=== PATIENT | female | born 1955 | race Caucasian/White ===

== ENCOUNTER 2018-05-10 17:55 | Emergency (ER) | payer MEDICARE, OTHER ==
[2018-05-10] MEDS ORDERED: SODIUM CHLORIDE 0.9% 1,000 ML IV STA ×2 (18:32)
[2018-05-10] MEDS ORDERED: ASPIRIN 81 MG PO STA (18:32)
--- NOTE | 2018-05-10 18:34 | ED ---
Chest Pain HPI - General Chief Complaint: Chest Pain Stated Complaint: CHEST PAIN X 3 DAYS Time Seen by Provider: 05/10/18 18:20 Source: patient, RN notes reviewed, old records reviewed Mode of arrival: ambulatory Limitations: no limitations - History of Present Illness Initial Comments: Patient is a 63-year-old female presenting to emergency department today with chief complaint of intermittent chest pain for the past 3 days. Patient reports that the symptoms started when she was swimming in her friend's pool. She is a frequent swimmer and exercises regularly. Patient states she had episodes of swelling on the past 2 days. She states also will she was in her barn today moving hay she developed left-sided chest pain. She states been persistent since that time but has lessened. She complains of a dull ache currently. She denies any associated shortness of breath. She did complain of some tingling in her left arm. She does have a history of a "leaky valve". Patient states that she has had no fevers or chills. No coughing. She is an occasional marijuana smoker. She denies any significant family history of heart disease. - Related Data Home Medications Medication Instructions Recorded Confirmed ALPRAZolam [Xanax] 0.5 mg PO TID 05/10/18 05/10/18 Albuterol Inhaler [Ventolin Hfa 2 puff INHALATION RT-QID 05/10/18 05/10/18 Inhaler] Cetirizine HCl [Zyrtec] 10 mg PO DAILY 05/10/18 05/10/18 HYDROcodone/APAP 10-325MG [[place] 1 tab PO BID 05/10/18 05/10/18 10-325] Triamcinolone Acetonide [Nasacort] 1 spray EA NOSTRIL BID 05/10/18 05/10/18 Allergies Allergy/AdvReac Type Severity Reaction Status Date / Time meperidine [From Demerol] Allergy Nausea & Verified 05/10/18 18:49 Vomiting Penicillins Allergy Rash/Hives Verified 05/10/18 18:49 Review of Systems ROS Statement: Those systems with pertinent positive or pertinent negative responses have been documented in the HPI. ROS Other: All systems not noted in ROS Statement are negative. EKG Findings - EKG Comments: EKG Findings:: EKG performed at 1843 shows sinus bradycardia cut her otherwise normal EKG. Ventricular rate 55 bpm. Intervals 140 ms. QRS duration 88 ms. QT QTc is 96/378 ms. 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 Patient appears in no acute distress. Limitations: no limitations General appearance: alert, in no apparent distress Head exam: Present: atraumatic, normocephalic, normal inspection Eye exam: Present: normal appearance, PERRL, EOMI. Absent: scleral icterus, conjunctival injection, periorbital swelling ENT exam: Present: normal exam, mucous membranes moist Neck exam: Present: normal inspection. Absent: tenderness, meningismus, lymphadenopathy Respiratory exam: Present: normal lung sounds bilaterally. Absent: respiratory distress, wheezes, rales, rhonchi, stridor Cardiovascular Exam: Present: regular rate, normal rhythm, normal heart sounds. Absent: systolic murmur, diastolic murmur, rubs, gallop, clicks GI/Abdominal exam: Present: soft, normal bowel sounds. Absent: distended, tenderness, guarding, rebound, rigid Extremities exam: Present: normal inspection, full ROM, normal capillary refill. Absent: tenderness, pedal edema, joint swelling, calf tenderness Back exam: Present: normal inspection Neurological exam: Present: alert, oriented X3, CN II-XII intact Psychiatric exam: Present: normal affect, normal mood Skin exam: Present: warm, dry, intact, normal color. Absent: rash Course Vital Signs 05/10/18 05/10/18 18:06 19:00 Temperature 97.5 F L Pulse Rate 85 61 Respiratory 18 20 Rate Blood Pressure 153/94 139/81 O2 Sat by Pulse 100 100 Oximetry Chest Pain MDM - MDM 63-year-old female presents emergency Department with 3 days of intermittent chest pain. She reports is worse with exertion. At this time patient's EKG shows no significant changes. Her troponin was normal. Due to risk factor of age and the description the patient's pain being worse on exertion I discussed I would like to admit her. Patient has no family history of heart disease. She does report a history of "Leaky valve". She recently moved.. She reports that she has to take care of her sick horrse, and her dog are kenneled.. She has no family that would be able to take care of them for her at this time. I did discuss that I would like to admit the Patient and Patient states that she cannot be admitted at this time. She will be leaving AGAINST MEDICAL ADVICE. I did discuss that she should have very close follow-up with her primary care physician and extractor filler. Discussed she has any severe further chest pains that she should return to emergency department at once. Patient agrees to treatment plan will comply.Chest x-rays negative for any active cardiopulmonary disease. Normal heart. Disposition Clinical Impression: Chest pain Disposition: Left Against Medical Advice Condition: Stable Instructions: Chest Pain (ED) Additional Instructions: Patient advised to follow-up with PCP and cardiology. Patient should call 911 if there is any further episodes of chest pain. Is patient prescribed a controlled substance at d/c from ED?: No Referrals: Preeti Butler MD [Primary Care Provider] - 1-2 days Buddy Randhawa MD [STAFF PHYSICIAN] - 1-2 days Time of Disposition: 20:30
[2018-05-10 19:14] LABS: Basophils % (A) 1 %; Eosinophils # (A) 0.1 k/uL (0-0.7); Eosinophils % (A) 1 %; HCT 43.1 % (34.0-46.0); HGB 14.1 gm/dL (11.4-16.0); Lymphocytes % (A) 33 %; MCHC 32.8 g/dL (31.0-37.0); MCV 94.4 fL (80.0-100.0); Mean Platelet Volume 6.2; Monocytes # (A) 0.3 k/uL (0-1.0); Monocytes % (A) 5 %; Neutrophils # (A) 3.6 k/uL (1.3-7.7); Neutrophils % (A) 58 %; Platelet Count 276 k/uL (150-450); RBC 4.56 m/uL (3.80-5.40); RDW 12.4 % (11.5-15.5); WBC 6.2 k/uL (3.8-10.6)
[2018-05-10 19:23] LABS: INR 1.1 (<1.2); Partial Thromboplastin Time 25.1 sec (22.0-30.0); Prothrombin Time 10.4 sec (9.0-12.0)
[2018-05-10 19:24] LABS: ALT 43 U/L (9-52); AST 39 U/L (14-36); Albumin 4.4 g/dL (3.5-5.0); Alkaline Phosphatase 71 U/L (38-126); Anion Gap 9 mmol/L; Blood Urea Nitrogen 17 mg/dL (7-17); Calcium 9.8 mg/dL (8.4-10.2); Carbon Dioxide 24 mmol/L (22-30); Chloride 105 mmol/L (98-107); Glucose 89 mg/dL (74-99); Magnesium 1.9 mg/dL (1.6-2.3); Sodium 138 mmol/L (137-145); Total Bilirubin 0.7 mg/dL (0.2-1.3); Total Protein 7.4 g/dL (6.3-8.2)
[2018-05-10 19:26] LABS: Creatine Kinase 308 U/L (30-135)
--- NOTE | 2018-05-10 19:36 | XR ---
EXAMINATION TYPE: XR chest 2V DATE OF EXAM: 05/10/2018 COMPARISON: NONE HISTORY: Chest pain TECHNIQUE: Frontal and lateral views of the chest are obtained. FINDINGS: There is no heart failure nor confluent pneumonic infiltrate. Costophrenic angles are zoe r. Bony thorax is intact. There is no pleural effusion. IMPRESSION: No active cardiopulmonary disease. Normal heart.
[2018-05-10 19:39] LABS: Creatine Kinase MB 6.9 ng/mL (0.0-2.4); Troponin I <0.012 ng/mL (0.000-0.034)
[2018-05-10 19:57] VITALS: RESP 20
[2018-05-10 21:26] VITALS: BP 136/85; PULSE 81; TEMP 98.2
== END 2018-05-10 20:40 | disposition left against medical advice (07) ==
LOC: EC 17:55
DX: R07.9 Chest pain, unspecified (principal); R20.2 Paresthesia of skin; F12.90 Cannabis use, unspecified, uncomplicated; F17.200 Nicotine dependence, unspecified, uncomplicated; Z88.0 Allergy status to penicillin; Z88.5 Allergy status to narcotic agent; Z79.51 Long term (current) use of inhaled steroids; Z79.891 Long term (current) use of opiate analgesic; Z79.899 Other long term (current) drug therapy; Z96.652 Presence of left artificial knee joint; Z86.79 Personal history of other diseases of the circulatory system; Z98.890 Other specified postprocedural states
CPT/HCPCS: 36415; 71046; 80053; 82550; 82553; 83735; 84484; 85025; 85610; 85730; 93005; 96360; 99285

== ENCOUNTER 2018-08-04 16:04 | Inpatient (IN) | payer MEDICARE ==
[2018-08-04] MEDS ORDERED: HYDROmorphone 1 MG/ML 1 ML SYRINGE IM STA (16:39)
[2018-08-04] MEDS ORDERED: KETOROLAC 60 MG/2 ML VIAL IM STA (16:39)
--- NOTE | 2018-08-04 16:44 | ED ---
General Adult HPI <Precious Mesa - Last Filed: 08/04/18 18:25> - General Source: patient, RN notes reviewed Mode of arrival: ambulatory Limitations: no limitations <Sukhjinder Gant - Last Filed: 08/04/18 19:30> - General Chief complaint: Extremity Injury, Upper Stated complaint: Arm Injury Time Seen by Provider: 08/04/18 16:15 - History of Present Illness Initial comments: This is a 63-year-old female who comes in complaining that she was kicked by a horse in the right forearm. Patient denies any pain to the hand or wrist patient denies any pain to the elbow. Patient states she was no other injury. Patient states he was on accident by the horse and did not aggression. Patient denies any head or neck injury patient denies any chest or back injury patient denies any other injury at any other place 6 except for the right forearm. (Sukhjinder Gant) - Related Data Home Medications Medication Instructions Recorded Confirmed ALPRAZolam [Xanax] 0.5 mg PO TID PRN 05/10/18 08/04/18 HYDROcodone/APAP 10-325MG [[place] 1 tab PO QID PRN 05/10/18 08/04/18 10-325] Ascorbic Acid [Vitamin C] 500 mg PO DAILY 08/04/18 08/04/18 Glucosam/Demetris-Msm1/C/Case/Bosw 1 tab PO DAILY 08/04/18 08/04/18 [Glucosamine-Chondroitin Tablet] Multivitamin,Therapeutic [Thera] 1 tab PO DAILY 08/04/18 08/04/18 Tumeric (Unknown Dose) 1 tab PO DAILY 08/04/18 08/04/18 Vitamin C/Biotin [Hair, Skin and 1 tab PO DAILY 08/04/18 08/04/18 Nails] Allergies Allergy/AdvReac Type Severity Reaction Status Date / Time meperidine [From Demerol] Allergy Nausea & Verified 08/04/18 16:41 Vomiting Penicillins Allergy Rash/Hives Verified 08/04/18 16:41 Review of Systems ROS Other: All systems not noted in ROS Statement are negative. <Precious Mesa - Last Filed: 08/04/18 18:25> ROS Other: All systems not noted in ROS Statement are negative. <Sukhjinder Gant - Last Filed: 08/04/18 19:30> ROS Statement: Those systems with pertinent positive or pertinent negative responses have been documented in the HPI. Past Medical History Past Medical History: Asthma, Hyperlipidemia Additional Past Medical History / Comment(s): Heart murmur. 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 She has good pulses and good cap refill at this time and good sensation at this time (Sukhjinder Gant) Vital Signs 08/04/18 08/04/18 16:16 18:50 Temperature 97.9 F Pulse Rate 71 65 Respiratory 18 18 Rate Blood Pressure 179/93 157/106 O2 Sat by Pulse 99 98 Oximetry Procedures - Orthopedic Splinting/Casting Injury #1 Side: right Upper Extremity Injury Location: short arm, wrist Upper Extremity Immobilizer: sugar tong splint, Parminder wrap <Precious Mesa - Last Filed: 08/04/18 18:25> <Sukhjinder Gant - Last Filed: 08/04/18 19:30> - Orthopedic Splinting/Casting Injury #1 Additional Comments: Neurovascular status intact after splint application. Skin is pink, warm, dry. Cap refills less than 3 seconds. Radial pulses 2+ and equal bilaterally. ( Precious Mesa) Medical Decision Making <Precious Mesa - Last Filed: 08/04/18 18:25> <Sukhjinder Gant - Last Filed: 08/04/18 19:30> - Medical Decision Making Patient's x-ray of forearm shows a displaced fracture of the mid ulna. I spoke with neck the physician engineer third assistant for Dr. Concepcion he wanted the patient admitted to do surgery on Tuesday. He placed a splint. EKG shows a normal sinus rhythm at 69 bpm WA interval 146 QRS is 90 QT interval 370 QTC is 45 per patient's EKG shows no ST segment elevation or depression or T wave abnormalities are noted. (Sukhjinder Gant) Disposition <Precious Mesa - Last Filed: 08/04/18 18:25> Time of Disposition: 19:10 <Sukhjinder Gant - Last Filed: 08/04/18 19:30> Clinical Impression: Ulnar fracture Disposition: ADMITTED IP TO THIS HOSP Referrals: Preeti Butler MD [Primary Care Provider] - 1-2 days
[2018-08-04] MEDS ORDERED: ONDANSETRON ODT 4 MG TAB PO STA (17:00)
--- NOTE | 2018-08-04 17:33 | XR ---
Right forearm 3 views. History pain. Kicked by horse. Comparison none. FINDINGS: There is a nondisplaced transverse fracture of the olecranon process of the ulna. There is nondisplac ed oblique fracture between middle and distal thirds of the ulna. There is no dislocation. 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 There is some spurring at the radiocarpa l joint. There is intact radius. IMPRESSION: Comminuted fracture of the ulna. No significant displacement.
[2018-08-04] MEDS ORDERED: SODIUM CHLORIDE 0.9% 1,000 ML IV ONE (19:11)
[2018-08-04 19:27] LABS: Basophils % (A) 0 %; Eosinophils # (A) 0.1 k/uL (0-0.7); Eosinophils % (A) 1 %; HCT 42.5 % (34.0-46.0); HGB 14.2 gm/dL (11.4-16.0); Lymphocytes # (A) 1.6 k/uL (1.0-4.8); Lymphocytes % (A) 17 %; MCH 31.3 pg (25.0-35.0); MCHC 33.3 g/dL (31.0-37.0); MCV 93.9 fL (80.0-100.0); Mean Platelet Volume 6.3; Monocytes # (A) 0.5 k/uL (0-1.0); Monocytes % (A) 6 %; Neutrophils # (A) 7.2 k/uL (1.3-7.7); Neutrophils % (A) 75 %; Platelet Count 278 k/uL (150-450); RBC 4.53 m/uL (3.80-5.40); RDW 12.5 % (11.5-15.5); WBC 9.6 k/uL (3.8-10.6)
--- NOTE | 2018-08-04 19:36 | XR ---
EXAMINATION TYPE: XR chest 2V DATE OF EXAM: 08/04/2018 COMPARISON: 05/10/2018 HISTORY: Chest pain TECHNIQUE: Frontal and lateral views of the chest are obtained. FINDINGS: Heart and mediastinum are normal. Lungs are clear. Diaphragm is normal. Bony thorax is int act. There is mild thoracolumbar levoscoliosis. IMPRESSION: No active cardiopulmonary disease. No change. Left shoulder surgery noted.
[2018-08-04 19:41] LABS: INR 0.9 (<1.2); Partial Thromboplastin Time 23.7 sec (22.0-30.0); Prothrombin Time 9.8 sec (9.0-12.0)
[2018-08-04 19:55] LABS: ALT 50 U/L (9-52); AST 42 U/L (14-36); Albumin 4.6 g/dL (3.5-5.0); Alkaline Phosphatase 77 U/L (38-126); Anion Gap 10 mmol/L; Blood Urea Nitrogen 17 mg/dL (7-17); Calcium 9.6 mg/dL (8.4-10.2); Carbon Dioxide 23 mmol/L (22-30); Chloride 106 mmol/L (98-107); Glucose 88 mg/dL (74-99); Potassium 4.3 mmol/L (3.5-5.1); Sodium 139 mmol/L (137-145); Total Bilirubin 0.7 mg/dL (0.2-1.3); Total Protein 7.6 g/dL (6.3-8.2)
[2018-08-04] MEDS ORDERED: HYDROmorphone 1 MG/ML 1 ML SYRINGE IVP STA (19:56)
[2018-08-04 22:38] VITALS: BMI 20.9
[2018-08-04] MEDS ORDERED: ALPRAZolam 0.5 MG TAB PO PRN (22:58)
[2018-08-05] MEDS: HYDROmorphone 1 MG/ML 1 ML SYRINGE IVP PRN ×3 (02:12→15:36)
[2018-08-05] MEDS: LORATADINE 10 MG TAB PO SCH (09:04)
[2018-08-05] MEDS ORDERED: HYDROcodone/APAP 10-325MG 1 EACH TAB PO PRN (11:43)
--- NOTE | 2018-08-05 11:53 | P.CONS ---
History of Present Illness - Reason for Consult Consult date: 08/05/18 Requesting physician: Frank Moura - History of Present Illness This is a 63-year-old female patient of Dr. Butler patient presented to the hospital after obtaining injury from being kicked by her horse. Patient was found to have an ulnar fracture. X-ray completed showing commuted fracture of the ulna. No significant displacement. Chest x-ray completed showing no active cardiopulmonary disease. No change. Left shoulder surgery noted. EKG completed showing sinus rhythm with sinus arrhythmia. Normal EKG. Patient history of asthma. Patient also reports that over the past few months she has had feeling of throat. Patient reported that he had palpitations in her primary care doctor [facility], patient reports she had 2 -D echo and stress test recently completed. Patient reports he is to follow-up next few days for her results. Patient was also evaluated by ENT. ENT ordered TSH and thyroid ultrasound. Patient has not had those tests completed. Upon examination thyroid does feel irregular and enlarged. Will order thyroid ultrasound and TSH levels. Dr. Xie has been consulted for ENT. Cardiology services also consulted for 2-D echo and stress test results along with cardiology clearance prior to surgery. At this time patient denies any chest pain or shortness of breath. Patient denies nausea vomiting or diarrhea. Patient denies any urinary burning or frequency. Planning to undergo surgery tomorrow with Dr. moura Patient denies any significant cardiac history. Patient denies history of diabetes mellitus. Patient denies history of COPD. Patient does reports she has been having intermittent palpitations and when she was followed [facility]. Patient to be evaluated by cardiology prior to surgery and cleared for surgery Review of Systems please refer to HPI otherwise unremarkable Past Medical History Past Medical History: Asthma, Hyperlipidemia Additional Past Medical History / Comment(s): Heart murmur. 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 broken pelvis Past Psychological History: No Psychological Hx Reported Smoking Status: Never smoker Past Alcohol Use History: Occasional Past Drug Use History: Marijuana Additional Drug Use History / Comment(s): two days ago - Past Family History Mother Additional Family Medical History / Comment(s): diverticulitis, of blood clot, arthritis Father Additional Family Medical History / Comment(s): heart failure ITP Medications and Allergies Home Medications Medication Instructions Recorded Confirmed Type ALPRAZolam [Xanax] 0.5 mg PO TID PRN 05/10/18 08/04/18 History HYDROcodone/APAP 10-325MG [[place] 1 tab PO QID PRN 05/10/18 08/04/18 History 10-325] Ascorbic Acid [Vitamin C] 500 mg PO DAILY 08/04/18 08/04/18 History Cetirizine HCl [Zyrtec] 5 mg PO DAILY 08/04/18 History Glucosam/Demetris-Msm1/C/Case/Bosw 1 tab PO DAILY 08/04/18 08/04/18 History [Glucosamine-Chondroitin Tablet] Multivitamin,Therapeutic [Thera] 1 tab PO DAILY 08/04/18 08/04/18 History Tumeric (Unknown Dose) 1 tab PO DAILY 08/04/18 08/04/18 History Vitamin C/Biotin [Hair, Skin and 1 tab PO DAILY 08/04/18 08/04/18 History Nails] Allergies Allergy/AdvReac Type Severity Reaction Status Date / Time meperidine [From Demerol] Allergy Nausea & Verified 08/04/18 16:41 Vomiting Penicillins Allergy Rash/Hives Verified 08/04/18 16:41 Physical Exam Vitals: Vital Signs Temp Pulse Pulse Resp BP BP Pulse Ox 08/05/18 06:12 98.1 F 67 18 118/70 97 08/04/18 22:54 98.3 F 73 18 138/88 97 08/04/18 20:50 98.2 F 88 20 168/93 96 08/04/18 19:50 88 16 160/100 100 08/04/18 18:50 65 18 157/106 98 08/04/18 16:16 97.9 F 71 18 179/93 99 Intake and Output 08/04/18 08/05/18 08/05/18 22:59 06:59 14:59 Other: # Voids 2 Weight 58.967 kg Head normocephalic Neck supple. Thyroid enlarged and irregular Lungs clear to auscultation bilaterally no wheezing or crackles Heart regular rate and rhythm S1-S2, no rub or gallop Abdomen is soft nontender nondistended positive bowel sounds no hepatosplenomegaly Extremities no edema. Right extremity in cast Neuro alert and orientated to 3 Results CBC & Chem 7: 08/04/18 18:57 08/04/18 18:57 Labs: Abnormal Lab Results - Last 24 Hours (Table) 08/04/18 Range/Units 18:57 AST 42 H (14-36) U/L Assessment and Plan Assessment: 1. Right ulnar fracture. Patient sustained from horse injury. Patient planning to undergo surgicall intervention tomorrow with Dr. moura. 2. History of Asthma. No exacerbation at this time 3. Difficulty swallowing with thyroid irregularity. Patient was evaluated by ENT. Diarrhea ultrasound and TSH has been ordered Dr. Snyder has been consulted 4. History of palpitations. Patient reports that she was seen [facility]. 2-D echo and stress tests recently completed. Cardiology services consulted for test results and cardiac clearance Patient be cleared by cardiology services prior to surgery. Patient also to be evaluated by ENT. Thyroid ultrasound and TSH level has been ordered Chest x-ray showing no active cardiopulmonary disease. No change. Left shoulder surgery noted. EKG completed showing normal sinus rhythm with sinus arrhythmia, normal EKG. thank you for this consultation we will continue to follow patient closely throughout stay
--- NOTE | 2018-08-05 12:34 | US ---
EXAMINATION TYPE: US thyroid st tissue head/neck DATE OF EXAM: 08/05/2018 COMPARISON: NONE CLINICAL HISTORY: irregular thyroid. GLAND SIZE: Right Lobe: 4.2 x 1.1 x 1.0 cm Overall Parenchyma: homogenous Left Lobe: 4.0 x 1.0 x 1.0 cm Overall Parenchyma: homogeneous Isthmus Thickness: 0.2 cm NODULES RIGHT: # of nodules measured on right: 0 LEFT: # of nodules measured on left: 1 1. 0.4 X 0.3 x 0.3 cm echogenic solid nodule at the lower pole with well-defined margins. This nodu le is wider than tall and shows intranodular vascularity. No prior Bilateral neck scanned, no evidence of lymphadenopathy. IMPRESSION: Nonspecific subcentimeter nodule left thyroid lobe.
--- NOTE | 2018-08-05 12:38 | P.HPOR ---
History of Present Illness H&P Date: 08/05/18 Chief Complaint: Right ulna and olecranon fracture Patient is 63-year-old female who presented to [facility] on 08/04/2018 after sustaining an injury at her home. Patient was in her barn working with her horse, the horse became agitated and kicked her in the right upper extremity. Patient had immediate pain and presented [facility]. Upon arrival, imaging test were done. Images demonstrated a displaced right distal ulnar shaft fracture along with a nondisplaced right olecranon fracture. I was contacted by the emergency room staff regarding this patient, case was discussed. Patient was admitted under orthopedic care, plan for likely surgery. Patient was evaluated at bedside, she is resting comfortably, sugar tong splint and arm sling are intact. She notes no sciatic and discomfort at this time. She has no other acute orthopedic complaints. She admits to having a previous fracture involving the right wrist along time ago the, there is deformity noted she states. She also admits previous right shoulder surgery. Patient mentioned a recent issues with heart palpitations and difficulty swallowing. She was scheduled for a thyroid ultrasound in the next week or so, internal medicine has ordered the test. Cardiology has also been consult, she admits to a recent stress test and echo. Internal medicine is asking for clearance his prior surgery. Review of Systems Constitutional: Reports as per HPI Past Medical History Past Medical History: Asthma, Hyperlipidemia Additional Past Medical History / Comment(s): Heart murmur. 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 broken pelvis Past Psychological History: No Psychological Hx Reported Smoking Status: Never smoker Past Alcohol Use History: Occasional Past Drug Use History: Marijuana Additional Drug Use History / Comment(s): two days ago - Past Family History Mother Additional Family Medical History / Comment(s): diverticulitis, of blood clot, arthritis Father Additional Family Medical History / Comment(s): heart failure ITP Medications and Allergies Home Medications Medication Instructions Recorded Confirmed Type ALPRAZolam [Xanax] 0.5 mg PO TID PRN 05/10/18 08/04/18 History HYDROcodone/APAP 10-325MG [[place] 1 tab PO QID PRN 05/10/18 08/04/18 History 10-325] Ascorbic Acid [Vitamin C] 500 mg PO DAILY 08/04/18 08/04/18 History Cetirizine HCl [Zyrtec] 5 mg PO DAILY 08/04/18 History Glucosam/Demetris-Msm1/C/Case/Bosw 1 tab PO DAILY 08/04/18 08/04/18 History [Glucosamine-Chondroitin Tablet] Multivitamin,Therapeutic [Thera] 1 tab PO DAILY 08/04/18 08/04/18 History Tumeric (Unknown Dose) 1 tab PO DAILY 08/04/18 08/04/18 History Vitamin C/Biotin [Hair, Skin and 1 tab PO DAILY 08/04/18 08/04/18 History Nails] Allergies Allergy/AdvReac Type Severity Reaction Status Date / Time meperidine [From Demerol] Allergy Nausea & Verified 08/04/18 16:41 Vomiting Penicillins Allergy Rash/Hives Verified 08/04/18 16:41 Physical Examination Right upper extremity: Sugar tong splint and sling are in good position and condition. Minimal swelling present in the fingers at this time. Sensation to light touch with proximal distal to the splint are intact. Cap refills less than 2 seconds. Results - Labs Labs: Abnormal Lab Results - Last 24 Hours (Table) 08/04/18 Range/Units 18:57 AST 42 H (14-36) U/L H & H 08/04/18 Range/Units 18:57 Hgb 14.2 (11.4-16.0) gm/dL Hct 42.5 (34.0-46.0) % Coagulation 08/04/18 Range/Units 18:57 INR 0.9 (<1.2) Result Diagrams: 08/04/18 18:57 08/04/18 18:57 - Diagnostic results Elbow x-ray: report reviewed, image reviewed Wrist/Hand x-ray: report reviewed, image reviewed Assessment and Plan Plan: Imaging: Multiple views of the right forearm to include elbow and wrist were obtained and reviewed. Images do demonstrate a displaced right distal ulna fracture. Images also demonstrated a nondisplaced right intra-articular olecranon fracture. Overall alignment of the elbow remains intact. X-rays also demonstrate severe arthritis involving the first CMC joint. Assessment: 1. Right upper extremity injury 2. Displaced right distal ulnar fracture 3. Nondisplaced right intra-articular olecranon fracture 4. Other medical comorbidities Plan: I was able to discuss the case, including with physical exam findings and imaging studies my attending Dr. Concepcion. I plan is proceed with surgical intervention. We like to proceed with an open reduction internal fixation of both the right distal ulna and right olecranon fracture. Our plan is to proceed with this on 08/06/2018. Risk and benefits of the procedure were discussed patient's bedside, this to include but not excluded to infection, blood loss, neurovascular injury, pain and stiffness, possibility of nonunion versus malunion, need for subsequent surgery. Patient is in good understanding would like to proceed with surgery. Await recommendations from cardiology Internal medicine recommendations appreciated Continue use of arm sling at this time, ice and elevate Obtaining consent Nothing by mouth after midnight on 08/05/2018 Plan for surgery on 08/06/2018 Time with Patient: Less than 30
[2018-08-05] MEDS ORDERED: ONDANSETRON 4 MG/2 ML VIAL IVP PRN (15:41)
[2018-08-05] MEDS ORDERED: ONDANSETRON 4 MG/2 ML VIAL IVP STA (15:41)
--- NOTE | 2018-08-05 16:05 | P.OP ---
Date of Procedure: 08/05/18 Preoperative Diagnosis: Globus pharyngeus Dysphasia Postoperative Diagnosis: same Procedure(s) Performed: Flexible Nasopharyngolaryngoscopy Anesthesia: VERENAA Surgeon: Jared Collazo Estimated Blood Loss (ml): 0 Pathology: none sent Condition: stable Disposition: no change Indications for Procedure: Patient has globus pharyngeus and dysphagia symptoms. The patient fractured her ulnar and is soon to undergo surgery. I've been asked to consult regarding her airway in light of her symptoms. Operative Findings: The nasopharynx, oropharynx and hypopharynx did not show any pathology. No evidence of any tumors or masses. Description of Procedure: An EF type GP nasopharyngoscope was inserted into the patient's left nares and followed the floor the nose into the nasopharynx then into the oropharynx and hypopharynx. The epiglottis vocal cords base of tongue lateral pharynx arytenoids etc. all appear unremarkable. There is no evidence of obstruction or throat pathology.
--- NOTE | 2018-08-05 16:20 | P.GSCN ---
History of Present Illness Consult date: 08/05/18 Reason for Consult: Globus pharyngeus Dysphasia Requesting physician: Frank Concepcion History of present illness: This is a 63-year-old white female who fractured her ulnar on her right side. She has a history of dysphagia and globus pharyngeus and I've been asked to consult to make sure we do not have a difficult airway when we intubate the patient tomorrow with her scheduled fracture surgery. She tells me that this problem has been going on for a long period time. She has seen my partner for evaluation in the past. She tells me that when she swallows food gets stuck in the throat she has a persistent sensation of a lump in her throat. He does not seem to be getting better or worse. She is worried because her brother of throat cancer recently. She denies any hemoptysis or weight loss. Review of Systems - Constitutional Denies anorexia, Denies lethargy - EENT Ears, nose, mouth and throat: Denies bleeding gums, Denies dental pain - Cardiovascular Denies claudication - Respiratory Denies cough - Gastrointestinal Denies abdominal pain - Genitourinary Genitourinary: Denies abnormal vaginal bleeding Menstruation: Denies amenorrhea on BC - Musculoskeletal Reports arm numbness/tingling, Reports fractures, Denies frequent falls - Integumentary Denies brittle nails - Neurological Denies balance difficulties - Psychiatric Denies change in appetite - Endocrine Denies deepening of the voice - Hematologic/Lymphatic Denies easy bleeding - Allergic/Immunologic Reports allergic rhinitis, Denies angioedema Past Medical History Past Medical History: Asthma, Hyperlipidemia Additional Past Medical History / Comment(s): Heart murmur. 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 broken pelvis Past Psychological History: No Psychological Hx Reported Smoking Status: Never smoker Past Alcohol Use History: Occasional Past Drug Use History: Marijuana Additional Drug Use History / Comment(s): two days ago - Past Family History Mother Additional Family Medical History / Comment(s): diverticulitis, of blood clot, arthritis Father Additional Family Medical History / Comment(s): heart failure ITP Medications and Allergies Home Medications Medication Instructions Recorded Confirmed Type ALPRAZolam [Xanax] 0.5 mg PO TID PRN 05/10/18 08/04/18 History HYDROcodone/APAP 10-325MG [[place] 1 tab PO QID PRN 05/10/18 08/04/18 History 10-325] Ascorbic Acid [Vitamin C] 500 mg PO DAILY 08/04/18 08/04/18 History Cetirizine HCl [Zyrtec] 5 mg PO DAILY 08/04/18 History Glucosam/Demetris-Msm1/C/Case/Bosw 1 tab PO DAILY 08/04/18 08/04/18 History [Glucosamine-Chondroitin Tablet] Multivitamin,Therapeutic [Thera] 1 tab PO DAILY 08/04/18 08/04/18 History Tumeric (Unknown Dose) 1 tab PO DAILY 08/04/18 08/04/18 History Vitamin C/Biotin [Hair, Skin and 1 tab PO DAILY 08/04/18 08/04/18 History Nails] Allergies Allergy/AdvReac Type Severity Reaction Status Date / Time meperidine [From Demerol] Allergy Nausea & Verified 08/04/18 16:41 Vomiting Penicillins Allergy Rash/Hives Verified 08/04/18 16:41 Surgical - Exam Osteopathic Statement: *. No significant issues noted on an osteopathic structural exam other than those noted in the History and Physical/Consult. Vital Signs Temp Pulse Resp BP Pulse Ox 97.9 F 71 18 179/93 99 08/04/18 16:16 08/04/18 16:16 08/04/18 16:16 08/04/18 16:16 08/04/18 16:16 - General well developed, well nourished, no distress, moderate distress, severe distress - Eyes Head is normocephalic the face is symmetric there's no abnormal movements is no tenderness to the sinuses are mastoids. There is no nodules or eruptions or parasites on scalp. Auricles are well-formed canals are clear. Nose is patent there is some inferior turbinate hypertrophy noted and evidence of ALLERGIES are seen. Mouth and throat demonstrate no pathology. Neck is unremarkable PERRL, normal ocular movement - ENT normal pinna, normal nares, normal mucosa - Neck no masses, no bruits - Respiratory normal expansion, clear to percussion - Musculoskeletal normal gait, normal posture - Psychiatric oriented to time, oriented to person, oriented to place, speech is normal Results - Labs 08/04/18 18:57 08/04/18 18:57 Abnormal Lab Results - Last 24 Hours (Table) 08/04/18 Range/Units 18:57 AST 42 H (14-36) U/L Diabetes panel 08/04/18 Range/Units 18:57 Sodium 139 (137-145) mmol/L Potassium 4.3 (3.5-5.1) mmol/L Chloride 106 (98-107) mmol/L Carbon Dioxide 23 (22-30) mmol/L BUN 17 (7-17) mg/dL Creatinine 0.60 (0.52-1.04) mg/dL Glucose 88 (74-99) mg/dL Calcium 9.6 (8.4-10.2) mg/dL AST 42 H (14-36) U/L ALT 50 (9-52) U/L Alkaline Phosphatase 77 (38-126) U/L Total Protein 7.6 (6.3-8.2) g/dL Albumin 4.6 (3.5-5.0) g/dL Thyroid panel 08/04/18 Range/Units 18:37 TSH 3.500 (0.465-4.680) mIU/L Calcium panel 08/04/18 Range/Units 18:57 Calcium 9.6 (8.4-10.2) mg/dL Albumin 4.6 (3.5-5.0) g/dL Pituitary panel 08/04/18 08/04/18 Range/Units 18:37 18:57 Sodium 139 (137-145) mmol/L Potassium 4.3 (3.5-5.1) mmol/L Chloride 106 (98-107) mmol/L Carbon Dioxide 23 (22-30) mmol/L BUN 17 (7-17) mg/dL Creatinine 0.60 (0.52-1.04) mg/dL Glucose 88 (74-99) mg/dL Calcium 9.6 (8.4-10.2) mg/dL TSH 3.500 (0.465-4.680) mIU/L Adrenal panel 08/04/18 Range/Units 18:57 Sodium 139 (137-145) mmol/L Potassium 4.3 (3.5-5.1) mmol/L Chloride 106 (98-107) mmol/L Carbon Dioxide 23 (22-30) mmol/L BUN 17 (7-17) mg/dL Creatinine 0.60 (0.52-1.04) mg/dL Glucose 88 (74-99) mg/dL Calcium 9.6 (8.4-10.2) mg/dL Total Bilirubin 0.7 (0.2-1.3) mg/dL AST 42 H (14-36) U/L ALT 50 (9-52) U/L Alkaline Phosphatase 77 (38-126) U/L Total Protein 7.6 (6.3-8.2) g/dL Albumin 4.6 (3.5-5.0) g/dL Assessment and Plan (1) Globus pharyngeus Current Visit: Yes Status: Acute Code(s): F45.8 - OTHER SOMATOFORM DISORDERS SNOMED Code(s): 06321985 (2) Dysphagia Current Visit: Yes Status: Acute Code(s): R13.10 - DYSPHAGIA, UNSPECIFIED SNOMED Code(s): 08094035 Time with Patient: Greater than 30
--- NOTE | 2018-08-05 18:04 | CT ---
EXAMINATION TYPE: CT soft tissue neck wo/w con DATE OF EXAM: 08/05/2018 5:17 PM COMPARISON: None HISTORY: Dysphagia, globus pharyngeus. CT DLP: 529.5 mGycm Automated exposure control for dose reduction was used. CONTRAST: CT scan of the neck is performed following without and with IV Contrast, patient injected with 100 mL of Isovue 300. Axial images are obtained, coronal and sagittal reformatted images are reviewed. FINDINGS: There is normal branching pattern of the great vessels on the aortic arch. Thyroid gland appears norm al. There is normal contrast opacification of the carotid arteries and jugular veins. There is bilate ral contrast opacification of the vertebral arteries. Submandibular salivary glands are symmetric. I see no cervical adenopathy. Parotid glands are symmetr ic. The prevertebral soft tissues are unremarkable. The epiglottis is normal. Subglottic trachea appears normal. There is no evidence of a pharyngeal mass. The tonsils and adenoids are within normal limits. There are spondylotic changes in the cervical spine. I see no cervical lymphadenopathy. There is no pathologic enhancement. IMPRESSION: Spondylotic changes in the lower cervical spine with disc space narrowing at C5-6 C6-7. No fracture. No evidence of pharyngeal mass. I do not see a cause for dysphagia.
[2018-08-05] MEDS: MORPHINE SULFATE 2 MG/ML SYRINGE IVP PRN (21:44)
[2018-08-06] MEDS: MORPHINE SULFATE 2 MG/ML SYRINGE IVP PRN ×2 (02:31→05:11)
--- NOTE | 2018-08-06 07:24 | FL ---
EXAMINATION: Cervical and Thoracic Esophagram DATE OF EXAM: 08/05/2018 CLINICAL INDICATION: 63-year-old female with globus pharyngeus, dysphagia, patient currently intubate d for orthopedic surgery. COMPARISON: Correlation CT and ultrasound 08/05/2018 Total Fluoroscopy Time: 1 minute 36 seconds. Coronal images: 24 FINDINGS: The swallowing mechanism is normal with transient penetration incidentally noted. Hypopharyngeal diane star is preserved. There is anterior endplate spondylosis in the lower cervical spine especially at C5-C6 and C6/C7 caus ing mild to moderate focal impressions onto the posterior wall of the hypopharynx and upper cervical esophagus. There is no obstruction. The patient points at or close to this level when instructed to point to the site of symptomatology. The thoracic portion has a normal course and caliber. The mucosa is normal and no persistent filling defect is encountered. There is no sizable hiatal hernia. The patient could not lay prone/VEGA for drinking of thin liquid. T his results in suboptimal assessment of esophageal motility. Also, unable to assess for gastroesophag eal reflux. IMPRESSION: 1. A couple likely incidental episodes of transient penetration. No aspiration seen during the study. 2. Anterior cervical spondylosis causes mild to moderate impressions on to the posterior wall of the hypopharynx and cervical esophagus. This contributes to some narrowing of the contrast column during swallows but does not cause any obstruction. 3. The patient is instructed to point to the level of globus/choking sensation. It may correspond to the same level. Clinically correlate. 4. Limited assessment of esophageal motility as the patient could not assume appropriate prone/VEGA po sitioning due to condition. The remainder of the study is unremarkable given this limitation.
[2018-08-06] MEDS ORDERED: ROPIVACAINE 5 MG/ML 30 ML VIAL ONE (08:00)
[2018-08-06] MEDS ORDERED: ONDANSETRON 4 MG/2 ML VIAL ONE (08:00)
[2018-08-06] MEDS ORDERED: DEXAMETHASONE SOD PHOS (MDV) 100 MG/10 ML VIAL ONE (08:00)
[2018-08-06] MEDS ORDERED: SUCCINYLCHOLINE CHLORIDE 100 MG/5 ML SYR IV ONE (08:00)
[2018-08-06] MEDS ORDERED: MIDAZOLAM 2 MG/2 ML VIAL ONE (08:00)
[2018-08-06] MEDS ORDERED: fentaNYL (PF) 50 MCG/ML 2 ML AMP ONE (08:00)
[2018-08-06] MEDS ORDERED: PHENYLEPHRINE-0.9% NACL SYG 1 MG/10 ML SYRINGE ONE (08:00)
[2018-08-06] MEDS ORDERED: LIDOCAINE 1% INJ 10MG/ML (20 ML MDV) ONE (08:00)
[2018-08-06] MEDS ORDERED: PROPOFOL 10 MG/ML 20 ML VIAL IV ONE (08:00)
[2018-08-06] MEDS ORDERED: ePHEDrine SULFATE/0.9% NACL/PF 50 MG/5 ML SYRINGE IV ONE (08:00)
[2018-08-06] MEDS ORDERED: LACTATED RINGERS 1,000 ML IV ONE (08:05)
[2018-08-06] MEDS ORDERED: SODIUM CHLORIDE 0.9% 50 ML with ceFAZolin 2,000 MG IV ONE ×2 (08:15)
[2018-08-06] MEDS ORDERED: BUPIVACAINE (PF) 0.25% 30 ML VIAL SQ ONE (08:29)
--- NOTE | 2018-08-06 09:00 | P.ONQ ---
Anesthesiology Proc Note - PNB - Peripheral Nerve Block Performed Right Supraclavicular Single Time Out Performed: Yes (0752) Procedure Start Time: 07:52 Procedure Stop Time: 07:58 Indication: Acute Post-Operative Pain, Dx/Pain Location (Right Elbow Pain), Requested by physician Sedation Type: Sedate with meaningful contact maintained Preparation: Sterile Prep Catheter: None Needle Types: On-Q Needle Size: 100mm (4") Needle Gauge: 21 Technique: Ultrasound Injectate: 0.5% Ropivacaine (see comment for volume) (20ml) Blood Aspirated: No Pain Paresthesia on Injection Noted: No Resistance on Injection: Normal Events: Uneventful and Well Tolerated
[2018-08-06] MEDS ORDERED: CLINDAMYCIN 600 MG in SODIUM CHLORIDE 0.9% 1,000 ML IRRIGATION ONE (09:03)
--- NOTE | 2018-08-06 09:31 | XR ---
EXAMINATION TYPE: XR elbow limited RT, XR wrist limited RT, FL guidance operating room DATE OF EXAM: 08/06/2018 COMPARISON: NONE HISTORY: 63-year-old female with elbow fracture, intraoperative fluoroscopy. FINDINGS: Percutaneous pinning with tension wire fixation along the olecranon. Some associated soft tissue swel ling. 2 views of the elbow. Additional medial plate and screw fixation of the distal ulnar shaft fracture. 2 views of the distal/ proximal wrist. FLUOROSCOPY Fluoroscopy time of 3 seconds was used during olecranon and distal ulnar shaft fixation. A total 4 i mage/s document/s the procedure. IMPRESSION: Intraoperative fluoroscopy as above.
[2018-08-06] MEDS ORDERED: HYDROmorphone 1 MG/ML 1 ML SYRINGE IM PRN (09:44)
[2018-08-06] MEDS ORDERED: MAGNESIUM HYDROXIDE 2,400 MG/10 ML CUP PO PRN (09:44)
--- NOTE | 2018-08-06 09:49 | P.OP ---
Date of Procedure: 08/06/18 Preoperative Diagnosis: 1. Right elbow olecranon fracture 2. Right distal ulnar shaft fracture Postoperative Diagnosis: Same Procedure(s) Performed: 1. Open reduction and internal fixation right elbow olecranon fracture 2. Open reduction and internal fixation right distal ulnar shaft fracture Implants: Synthes 6-hole plate with 6 appropriate length 3.5 mm cortical screws 2-0.62 K wires and 18-gauge cerclage wire Anesthesia: GETA, regional (Supraclavicular block) Surgeon: Frank Concepcion Viscosity Inspector #1: Maurice Mayer Estimated Blood Loss (ml): 15 Pathology: none sent Condition: stable Disposition: PACU Indications for Procedure: 63-year-old patient seen with a displaced right elbow olecranon fracture and displaced right distal ulnar shaft fracture. I recommended open reduction and internal fixation. Patient was agreeable and consent was obtained. Operative Findings: See description of procedure Description of Procedure: The patient was then taken to the operative suite and received preoperative IV antibiotics. The patient underwent a general anesthetic by the department of anesthesia. A well-padded tourniquet was placed along the proximal right upper extremity. The right upper extremity was prepped and draped in the normal sterile orthopedic fashion. The extremity elevated and tourniquet insufflated to 250. I made an incision along the area of the ulna shaft fracture sharply through skin. I carefully dissected down to the fracture site. There was a completely displaced fracture. Periosteal elevation was utilized to better define the fracture. The fracture was now reduced and held in position with bone reduction clamp. I chose a one third semitubular 6-hole Synthes plate and secured it. Appropriate drill holes were now made. Appropriate screws were inserted having good bite and purchase. The construct appears stable and we evaluated this under AP and lateral intraoperative imaging and noted adequate alignment both the fracture and the fixation. I now made an incision along the olecranon sharply through skin. We dissected down to the olecranon. There was a displaced olecranon fracture noted. Again periosteal elevation was utilized to better define the fracture. I now inserted 20.62 K wires into the proximal olecranon. We then drilled a hole through the proximal one third area and introduced our cerclage wire and a cerclage fashion reduced the fracture and secured. The K wires were clipped and bent and buried. Tension was performed and the tension wire was cut clipped and bent and buried in soft tissues well. The C-arm was brought to the operative field revealing adequate alignment of the fixation and good reduction of the fracture. Spot films were obtained intraoperatively. Both wounds were irrigated with antibiotic irrigant solution. Subcu soft tissues of both incision sites were approximated 2-0 Vicryl. The skin of both incisions were approximated with skin jerry. We applied sterile dressings. The tourniquet was released with immediate capillary refill noted. We now applied sterile web roll. The patient was placed into a posterior splint with the elbow at 90 in neutral rotation of the forearm. The patient was now awakened transferred to a bed and recovery stable condition. Chester FORD assisted with both procedures.
[2018-08-06] MEDS ORDERED: diphenhydrAMINE 50 MG/ML 1 ML VIAL IVP ONE (09:50)
[2018-08-06 11:07] VITALS: RESP 16
[2018-08-06] MEDS: PANTOPRAZOLE 40 MG TABLET PO SCH (11:11)
[2018-08-06] MEDS: LORATADINE 10 MG TAB PO SCH (11:11)
[2018-08-06 12:51] LABS: Basophils % (A) 0 %; Eosinophils % (A) 0 %; HCT 37.8 % (34.0-46.0); HGB 12.5 gm/dL (11.4-16.0); Lymphocytes # (A) 0.4 k/uL (1.0-4.8); Lymphocytes % (A) 7 %; MCH 31.6 pg (25.0-35.0); MCV 95.8 fL (80.0-100.0); Mean Platelet Volume 6.6; Monocytes # (A) 0.1 k/uL (0-1.0); Monocytes % (A) 2 %; Neutrophils # (A) 5.2 k/uL (1.3-7.7); Neutrophils % (A) 90 %; Platelet Count 233 k/uL (150-450); RBC 3.95 m/uL (3.80-5.40); RDW 12.7 % (11.5-15.5); WBC 5.8 k/uL (3.8-10.6)
[2018-08-06 13:01] LABS: ALT 36 U/L (9-52); AST 32 U/L (14-36); Albumin 3.8 g/dL (3.5-5.0); Alkaline Phosphatase 67 U/L (38-126); Anion Gap 5 mmol/L; Blood Urea Nitrogen 12 mg/dL (7-17); Calcium 9.2 mg/dL (8.4-10.2); Carbon Dioxide 27 mmol/L (22-30); Chloride 108 mmol/L (98-107); Glucose 124 mg/dL (74-99); Potassium 4.2 mmol/L (3.5-5.1); Sodium 140 mmol/L (137-145); Total Bilirubin 0.6 mg/dL (0.2-1.3); Total Protein 6.4 g/dL (6.3-8.2)
--- NOTE | 2018-08-06 14:07 | P.PN ---
Subjective Progress Note Date: 08/06/18 This is a 63-year-old female patient of Dr. Butler patient presented to the hospital after obtaining injury from being kicked by her horse. Patient was found to have an ulnar fracture. X-ray completed showing commuted fracture of the ulna. No significant displacement. Chest x-ray completed showing no active cardiopulmonary disease. No change. Left shoulder surgery noted. EKG completed showing sinus rhythm with sinus arrhythmia. Normal EKG. Patient history of asthma. Patient also reports that over the past few months she has had feeling of throat. Patient reported that he had palpitations in her primary care doctor sent [facility], patient reports she had 2 -D echo and stress test recently completed. Patient reports he is to follow-up next few days for her results. Patient was also evaluated by ENT. ENT ordered TSH and thyroid ultrasound. Patient has not had those tests completed. Upon examination thyroid does feel irregular and enlarged. Will order thyroid ultrasound and TSH levels. Dr. Xie has been consulted for ENT. Cardiology services also consulted for 2-D echo and stress test results along with cardiology clearance prior to surgery. At this time patient denies any chest pain or shortness of breath. Patient denies nausea vomiting or diarrhea. Patient denies any urinary burning or frequency. Planning to undergo surgery tomorrow with Dr. moura On 08/06/2018 patient was seen and examined on the medical floor she is alert and oriented 3 in no apparent distress. There is no fever or chills no headache or dizziness no chest pain no shortness of breath no cough no nausea or vomiting no abdominal pain no diarrhea and no urinary symptoms Objective - Vital Signs Vital signs: Vital Signs Temp 97.9 F 08/06/18 10:50 Pulse 82 08/06/18 10:50 Resp 16 08/06/18 10:50 BP 132/90 08/06/18 10:50 Pulse Ox 98 08/06/18 10:50 Intake & Output 08/05/18 08/06/18 08/06/18 18:59 06:59 18:59 Intake Total 1800 801 Output Total 15 Balance 1800 786 Intake: IV 801 Oral 1800 Output: Estimated Blood Loss 15 Other: Voiding Method Toilet # Voids 2 1 - Exam Head normocephalic Neck supple. Thyroid enlarged and irregular Lungs clear to auscultation bilaterally no wheezing or crackles Heart regular rate and rhythm S1-S2, no rub or gallop Abdomen is soft nontender nondistended positive bowel sounds no hepatosplenomegaly Extremities no edema. Right extremity in cast Neuro alert and orientated to 3 - Labs CBC & Chem 7: 08/06/18 11:28 08/06/18 11:28 Labs: Abnormal Lab Results - Last 24 Hours (Table) 08/06/18 08/06/18 Range/Units 11:28 11:28 Lymphocytes # 0.4 L (1.0-4.8) k/uL Chloride 108 H (98-107) mmol/L Glucose 124 H (74-99) mg/dL Assessment and Plan Plan: 1. Right ulnar fracture. Patient sustained from horse injury. Patient underwent surgery with Dr. moura today 2. History of Asthma. No exacerbation at this time 3. Difficulty swallowing with thyroid irregularity. Patient was evaluated by ENT. Diarrhea ultrasound and TSH has been ordered Dr. Snyder has been consulted 4. History of palpitations. Patient reports that she was seen by [facility]. 2-D echo and stress tests recently completed. Cardiology services consulted for test results and cardiac clearance Patient seen postoperatively she is stable no symptoms at this time will follow closely
[2018-08-06] MEDS ORDERED: ceFAZolin IN SWFI 2 GM/20 ML SYRINGE IVP ONE (16:00)
[2018-08-06] MEDS: HYDROcodone/APAP 10-325MG 1 EACH TAB PO PRN ×2 (16:40→21:31)
[2018-08-06] MEDS: DOCUSATE 100 MG CAP PO SCH (20:52)
--- NOTE | 2018-08-06 22:47 | P.CRDCN ---
History of Present Illness Consult date: 08/06/18 Consult reason: pre-op evaluation History of present illness: This patient was admitted with the ulnar fracture. Patient underwent the surgery without any complications. Patient has a history of asthma also has been having intermittent palpitations. She was evaluated in our office with the stress test and echocardiogram. Was told that her stress test was normal. Patient is not having any chest pain or palpitations at present patient denies any significant shortness of breath at present Past Medical History Past Medical History: Asthma, Hyperlipidemia Additional Past Medical History / Comment(s): Heart murmur. 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 broken pelvis Past Psychological History: No Psychological Hx Reported Smoking Status: Never smoker Past Alcohol Use History: Occasional Past Drug Use History: Marijuana Additional Drug Use History / Comment(s): two days ago - Past Family History Mother Additional Family Medical History / Comment(s): diverticulitis, of blood clot, arthritis Father Additional Family Medical History / Comment(s): heart failure ITP Medications and Allergies Home Medications Medication Instructions Recorded Confirmed Type ALPRAZolam [Xanax] 0.5 mg PO TID PRN 05/10/18 08/04/18 History HYDROcodone/APAP 10-325MG [[place] 1 tab PO QID PRN 05/10/18 08/04/18 History 10-325] Ascorbic Acid [Vitamin C] 500 mg PO DAILY 08/04/18 08/04/18 History Cetirizine HCl [Zyrtec] 5 mg PO DAILY 08/04/18 History Glucosam/Demetris-Msm1/C/Case/Bosw 1 tab PO DAILY 08/04/18 08/04/18 History [Glucosamine-Chondroitin Tablet] Multivitamin,Therapeutic [Thera] 1 tab PO DAILY 08/04/18 08/04/18 History Tumeric (Unknown Dose) 1 tab PO DAILY 08/04/18 08/04/18 History Vitamin C/Biotin [Hair, Skin and 1 tab PO DAILY 08/04/18 08/04/18 History Nails] Allergies Allergy/AdvReac Type Severity Reaction Status Date / Time meperidine [From Demerol] Allergy Nausea & Verified 08/04/18 16:41 Vomiting Penicillins Allergy Rash/Hives Verified 08/04/18 16:41 Physical Exam Vitals: Vital Signs Temp Pulse Resp BP Pulse Ox 08/06/18 15:55 16 08/06/18 13:42 97.5 F L 85 16 119/73 95 08/06/18 10:50 97.9 F 82 16 132/90 98 08/06/18 10:21 83 18 133/89 97 08/06/18 10:06 76 16 135/71 100 08/06/18 09:51 75 16 129/87 98 08/06/18 09:36 97.4 F L 83 18 122/77 99 08/06/18 06:06 99.2 F 79 17 123/76 95 08/05/18 22:52 98.5 F 86 18 123/86 97 Intake and Output 08/06/18 08/06/18 08/06/18 06:59 14:59 22:59 Intake Total 1401 600 Output Total 15 Balance 1386 600 Intake: IV 801 Oral 600 600 Output: Estimated Blood Loss 15 Other: # Voids 1 4 1 Patient's vital signs are reviewed. The patient is alert awake and in no acute distress. HEENT negative. Neck-supple no increase in JVP noted no carotid bruits noted. Chest-symmetrical. Heart-first and second heart sounds are normal. No S3 or S4 is noted. No significant murmurs are noted. Lungs bilateral good at entry is noted. No rales or rhonchi are noted Abdomen-soft. Liver and spleen are not enlarged. The bowel sounds are normal. No tenderness noted Extremities-peripheral pulses since are 2+. No significant leg edema noted. Neuro-no significant gross abnormality noted. Results 08/06/18 11:28 08/06/18 11:28 Cardiac Enzymes 08/06/18 Range/Units 11:28 AST 32 (14-36) U/L CBC 08/06/18 Range/Units 11:28 WBC 5.8 (3.8-10.6) k/uL RBC 3.95 (3.80-5.40) m/uL Hgb 12.5 (11.4-16.0) gm/dL Hct 37.8 (34.0-46.0) % Plt Count 233 (150-450) k/uL Comprehensive Metabolic Panel 08/06/18 Range/Units 11:28 Sodium 140 (137-145) mmol/L Potassium 4.2 (3.5-5.1) mmol/L Chloride 108 H (98-107) mmol/L Carbon Dioxide 27 (22-30) mmol/L BUN 12 (7-17) mg/dL Creatinine 0.58 (0.52-1.04) mg/dL Glucose 124 H (74-99) mg/dL Calcium 9.2 (8.4-10.2) mg/dL AST 32 (14-36) U/L ALT 36 (9-52) U/L Alkaline Phosphatase 67 (38-126) U/L Total Protein 6.4 (6.3-8.2) g/dL Albumin 3.8 (3.5-5.0) g/dL Current Medications Generic Name Dose Route Start Last Admin Trade Name Freq PRN Reason Stop Dose Admin Hydrocodone Bitart/Acetaminophen 1 each 08/05/18 11:43 [place] 10 PO QID PRN Pain Hydrocodone Bitart/Acetaminophen 2 each 08/06/18 09:44 08/06/18 21:31 [place] 10 PO 2 each Q6H PRN Administration Pain Alprazolam 0.5 mg 08/04/18 22:58 08/05/18 09:06 Xanax PO 0.5 mg TID PRN Administration Anxiety Cefazolin Sodium 2 gm 08/07/18 00:00 Kefzol IVP 08/07/18 00:01 ONCE ONE Docusate Sodium 100 mg 08/06/18 21:00 08/06/18 20:52 Colace PO 100 mg BID DARSHANA Administration Hydromorphone HCl 1 mg 08/06/18 09:44 Dilaudid IM Q3HR PRN Pain Loratadine 5 mg 08/05/18 09:00 08/06/18 11:11 Claritin PO Not Given DAILY DARSHANA Magnesium Hydroxide 2,400 mg 08/06/18 09:44 Milk Of Magnesia PO DAILY PRN Constipation Morphine Sulfate 1 mg 08/05/18 21:06 08/06/18 05:11 Morphine Sulfate (Inj) IVP 1 mg Q3HR PRN Administration pain Ondansetron HCl 4 mg 02/16/19 15:41 Zofran IVP Q6HR PRN Nausea And Vomiting Pantoprazole Sodium 40 mg 08/06/18 07:30 08/06/18 11:11 Protonix PO Not Given AC-BRKFST DARSHANA Intake and Output 08/06/18 08/06/18 08/06/18 06:59 14:59 22:59 Intake Total 1401 600 Output Total 15 Balance 1386 600 Intake: IV 801 Oral 600 600 Output: Estimated Blood Loss 15 Other: # Voids 1 4 1 08/06/18 11:28 08/06/18 11:28 EKG Interpretations (text) EKG shows normal sinus rhythm with nonspecific ST-T changes. Assessment and Plan Assessment: This patient is status post surgery for fracture and ulnar bone. Sent is stable cardiac-gary at present. And recently had a cardiac testing done in our office and she was told that everything was normal at present patient is not having any significant arrhythmia. Patient can be discharged home and follow- up with Dr. Mcguire in our office.
[2018-08-07] MEDS ORDERED: ceFAZolin IN SWFI 2 GM/20 ML SYRINGE IVP ONE
[2018-08-07] MEDS: HYDROcodone/APAP 10-325MG 1 EACH TAB PO PRN ×2 (02:45→09:15)
[2018-08-07] MEDS: LORATADINE 10 MG TAB PO SCH (07:50)
[2018-08-07] MEDS: DOCUSATE 100 MG CAP PO SCH (07:50)
[2018-08-07] MEDS: PANTOPRAZOLE 40 MG TABLET PO SCH (07:50)
[2018-08-07 08:07] VITALS: BP 137/80; PULSE 68; TEMP 97.8
[2018-08-07 08:58] LABS: Basophils % (A) 0 %; Eosinophils # (A) 0.1 k/uL (0-0.7); Eosinophils % (A) 1 %; HGB 12.7 gm/dL (11.4-16.0); Lymphocytes # (A) 2.1 k/uL (1.0-4.8); Lymphocytes % (A) 17 %; MCH 31.7 pg (25.0-35.0); MCHC 33.4 g/dL (31.0-37.0); Mean Platelet Volume 6.3; Monocytes # (A) 0.8 k/uL (0-1.0); Monocytes % (A) 6 %; Neutrophils # (A) 9.4 k/uL (1.3-7.7); Neutrophils % (A) 75 %; Platelet Count 269 k/uL (150-450); RDW 12.5 % (11.5-15.5); WBC 12.5 k/uL (3.8-10.6)
[2018-08-07 09:09] LABS: ALT 36 U/L (9-52); AST 31 U/L (14-36); Albumin 4.1 g/dL (3.5-5.0); Alkaline Phosphatase 68 U/L (38-126); Anion Gap 6 mmol/L; Blood Urea Nitrogen 11 mg/dL (7-17); Calcium 9.8 mg/dL (8.4-10.2); Carbon Dioxide 27 mmol/L (22-30); Chloride 107 mmol/L (98-107); Glucose 92 mg/dL (74-99); Potassium 4.4 mmol/L (3.5-5.1); Sodium 140 mmol/L (137-145); Total Bilirubin 0.8 mg/dL (0.2-1.3); Total Protein 6.9 g/dL (6.3-8.2)
--- NOTE | 2018-08-07 09:26 | P.PN ---
Subjective Progress Note Date: 08/07/18 Principal diagnosis: Status post ORIF right distal ulna and olecranon fracture Patient evaluated today at bedside, she is resting comfortably. She has no acute complaints. She denies any fevers or chills. Objective - Vital Signs Vital signs: Vital Signs Temp 97.8 F 08/07/18 07:00 Pulse 68 08/07/18 07:00 Resp 16 08/07/18 07:00 BP 137/80 08/07/18 07:00 Pulse Ox 96 08/07/18 07:00 Intake & Output 08/06/18 08/07/18 08/07/18 18:59 06:59 18:59 Intake Total 2000 Output Total 15 Balance 1985 Intake: IV 801 Oral 1200 Output: Estimated Blood Loss 15 Other: # Voids 2 2 - Exam Right upper extremity: Splint is in good position and condition, soft tissue swelling is minimal. Sensation to light touch with proximal distal to the extremity are intact. Cap refills less than 2 seconds. - Labs CBC & Chem 7: 08/07/18 08:12 08/07/18 08:12 Labs: Abnormal Lab Results - Last 24 Hours (Table) 08/06/18 08/06/18 08/07/18 Range/Units 11:28 11:28 08:12 WBC 12.5 H (3.8-10.6) k/uL Neutrophils # 9.4 H (1.3-7.7) k/uL Lymphocytes # 0.4 L (1.0-4.8) k/uL Chloride 108 H (98-107) mmol/L Glucose 124 H (74-99) mg/dL Assessment and Plan Plan: Assessment: Postoperative day 1 status post ORIF right distal ulna and olecranon fracture Plan: Pain control, we'll discharge home on oral medication Wound care instructions and cast instructions were discussed Activity restrictions were discussed Plan for follow-up in 2 weeks Time with Patient: Less than 30
--- NOTE | 2018-08-07 09:28 | P.DS ---
Providers Date of admission: 08/04/18 19:10 Expected date of discharge: 08/07/18 Attending physician: Frank Concepcion Consults: 08/04/18 19:11 Consult Physician Urgent Consulting Provider: Jaida Salas Consult Reason/Comments: Medical clearance Do you want consulting provider notified?: Yes 08/05/18 08:18 Consult Physician Routine Consulting Provider: Dav Lopez Consult Reason/Comments: known, lump in throat, surgery planned for broken arm, need clearance Do you want consulting provider notified?: Yes 08/05/18 11:41 Consult Physician Routine Consulting Provider: Hermes Ziegler Consult Reason/Comments: recent stress test, 2 decho. cardiac clearance Do you want consulting provider notified?: Yes Primary care physician: Preeti Butler Hospital Course: Date of admission: 08/04/2018 Date of discharge: 08/07/2018 Admission diagnosis: Displaced right distal ulna fracture and right olecranon fracture Discharge diagnosis: Status post ORIF right distal ulna fracture and right olecranon fracture Attending physician: Dr. Concepcion Surgical procedures: Open reduction internal fixation right distal ulna fracture and right olecranon fracture Brief history: Patient is a 63-year-old female who presented to [facility] with regards to right upper extremity injury after being kicked by her horse. X-rays demonstrated fractures of the right distal ulna and right olecranon. Patient was admitted under orthopedic care with plan for surgical intervention. Hospital course: Details of patient's surgery can be found in operative report. Patient tolerated the procedure well and was subsequently transported to orthopedic floor. Patient's orthopeidc and medical care was provided daily. Patient had daily laboratory tests performed for evaluation of overall blood counts. Patient had daily physical therapy to include strengthening range of motion as well as education with walker ambulation. Patient was noted to have a relatively uneventful postoperative course. Patient reported satisfactory pain control with oral pain medications by postoperative day 0. Patient showed satisfactory progress with physical therapy. Patient moved steadily through the program and had no difficulty meeting the goals by postoperative day 1. Given patient's otherwise satisfactory course and having met physical therapy goals, plan is to discharge patient home on postoperative day 1. Discharge condition/disposition: Patient will be discharged home in stable condition. Discharge medications: Instructions are given on resumption of patient's normal daily medications per primary care recommendation, in addition patient will be prescribed no new medication . Discharge instructions: 1. Do not remove splint, keep clean and dry 2. Keep splint covered while showering 3. Utilize arm sling as needed 4. Elevate the extremity often 5. Follow-up [facility] in 2 weeks. Procedures: Open reduction internal fixation right distal ulna fracture and right olecranon fracture Patient Condition at Discharge: Good Plan - Discharge Summary Discharge Rx Participant: No New Discharge Prescriptions: New Hydrocodone/Acetaminophen [Effie 10-325] 1 - 2 each PO Q6H PRN #24 tab PRN Reason: Pain Discontinued HYDROcodone/APAP 10-325MG [Effie 10-325] 1 tab PO QID PRN PRN Reason: Pain No Action ALPRAZolam [Xanax] 0.5 mg PO TID PRN PRN Reason: Anxiety Tumeric (Unknown Dose) 1 tab PO DAILY Ascorbic Acid [Vitamin C] 500 mg PO DAILY Vitamin C/Biotin [Hair, Skin and Nails] 1 tab PO DAILY Multivitamin,Therapeutic [Thera] 1 tab PO DAILY Glucosam/Demetris-Msm1/C/Case/Bosw [Glucosamine-Chondroitin Tablet] 1 tab PO DAILY Cetirizine HCl [Zyrtec] 5 mg PO DAILY Discharge Medication List ALPRAZolam [Xanax] 0.5 mg PO TID PRN 05/10/18 [History] Ascorbic Acid [Vitamin C] 500 mg PO DAILY 08/04/18 [History] Cetirizine HCl [Zyrtec] 5 mg PO DAILY 08/04/18 [History] Glucosam/Demetris-Msm1/C/Case/Bosw [Glucosamine-Chondroitin Tablet] 1 tab PO DAILY 08/04/18 [History] Multivitamin,Therapeutic [Thera] 1 tab PO DAILY 08/04/18 [History] Tumeric (Unknown Dose) 1 tab PO DAILY 08/04/18 [History] Vitamin C/Biotin [Hair, Skin and Nails] 1 tab PO DAILY 08/04/18 [History] Hydrocodone/Acetaminophen [Effie 10-325] 1 - 2 each PO Q6H PRN #24 tab 08/07/18 [Rx] Follow up Appointment(s)/Referral(s): Preeti Butler MD [Primary Care Provider] - 1-2 days Branch,Maurice M, PAC [PHYSICIAN CLAIMS ADJUDICATOR] - 2 Weeks Patient Instructions/Handouts: ORIF of an Arm Fracture (DC) Activity/Diet/Wound Care/Special Instructions: Discharge instructions: 1. Keep splint clean and dry, keep covered while showering 2. Do not remove splint 3. Utilize arm sling as needed 4. Ice and elevate often 5. Follow-up at [facility] in 2 weeks Discharge Disposition: HOME SELF-CARE
[2018-08-07 16:58] LABS: Thyroid Peroxidase Antibodies 196.6 U/mL (0.0-60.0)
== END 2018-08-07 10:48 | disposition home or self-care (01) | DRG 512 ==
LOC: EC 16:04 → 4MS4W 19:10 → OBSVTOIN 19:10 → 4MS4W 22:10
PROVIDERS: ADMIT Orthopaedic Surgery; ATTEND Orthopaedic Surgery
PROC: 0CJY8ZZ Inspection of Mouth and Throat, Via Natural or Artificial Opening Endoscopic (ICD-10-PCS; principal; 2018-08-05)
PROC: 0PSK04Z Reposition Right Ulna with Internal Fixation Device, Open Approach (ICD-10-PCS; 2018-08-06 08:00)
DX: S52.691A Other fracture of lower end of right ulna, initial encounter for closed fracture (principal); S52.021A Displaced fracture of olecranon process without intraarticular extension of right ulna, initial encounter for closed fracture; W55.12XA Struck by horse, initial encounter; Y93.52 Activity, horseback riding; E78.5 Hyperlipidemia, unspecified; F17.200 Nicotine dependence, unspecified, uncomplicated; J45.909 Unspecified asthma, uncomplicated; R13.10 Dysphagia, unspecified; Z80.0 Family history of malignant neoplasm of digestive organs; Z82.49 Family history of ischemic heart disease and other diseases of the circulatory system; Z96.652 Presence of left artificial knee joint; Z88.5 Allergy status to narcotic agent; Z88.0 Allergy status to penicillin
CPT/HCPCS: 29125; 36415; 64490; 70492; 71046; 74220; 76536; 80053; 84443; 85025; 85610; 85730; 86376; 86800; 93005; 96361; 96372; 96374; 99284

== ENCOUNTER 2018-08-30 08:16 | Day surgery (SDC) | payer MEDICARE ==
--- NOTE | 2018-08-29 16:01 | HP ---
HISTORY AND PHYSICAL REASON FOR ADMISSION: Surgery is scheduled for 08/30/2018 Isa Bentley is a 63-year-old patient with history right elbow ORIF olecranon fracture. She was seen with some recurrent displacement of fracture along with area of the wound and a small area of actual exposed hardware. I recommended revision ORIF of the olecranon fracture obviously addressing the wound and hardware exposure as well. I reviewed the procedure, risks, complications, benefits, recovery, she was agreeable. Consent was obtained. PAST MEDICAL HISTORY: Asthma. PAST SURGICAL HISTORY: Right ankle surgery, bilateral knee arthroscopy, bilateral shoulder surgery, right elbow surgery. MEDICATIONS: Nasacort, Ventolin, Xanax, Zyrtec, Keflex. ALLERGIES: ARE PENICILLIN, DEMEROL. SOCIAL HISTORY: She denies any current tobacco use. PHYSICAL EXAMINATION: Physical evaluation of the right elbow, there is a well-healed incision. There is an area just medial to that where there is a wound with a very small area of exposed hardware, probably the wire. She does have limited range of motion of the elbow. There is no significant tenderness to palpation. Her distal neurovascular exam is intact. Radiographs of the right elbow reveal some recurrent displacement measuring about 2-3 mm at the area intra-articular. The hardware appeared stable. We could see some unraveling of the wire, which probably accounts for the exposed hardware in wound area. IMPRESSION: Right elbow olecranon fracture with recurrent displacement and exposed hardware. PLAN: Revision open reduction, internal fixation, right elbow olecranon fracture. Surgery scheduled for 08/30/2018. MMODL / IJN: [id number] /
[2018-08-30 08:43] VITALS: BMI 21.2
[2018-08-30 08:50] VITALS: TEMP 97.4
[2018-08-30] MEDS ORDERED: SCOPOLAMINE 1.5MG/72HR PATCH TRANSDERM ONE (08:57)
[2018-08-30] MEDS ORDERED: MIDAZOLAM (PF) 2 MG/2 ML VIAL IV PRN (08:57)
[2018-08-30] MEDS ORDERED: LACTATED RINGERS 1,000 ML IV SCH (08:57)
[2018-08-30] MEDS ORDERED: DEXAMETHASONE SOD PHOSPHATE 10 MG/ML 1 ML VIAL IV ONE (08:57)
[2018-08-30] MEDS ORDERED: LIDOCAINE 1% 20 ML VIAL (10MG/ML) FOR IV START INTRADERMA PRN (08:57)
[2018-08-30] MEDS: ONDANSETRON 4 MG/2 ML VIAL IVP ONE ×2 (09:08→11:17)
[2018-08-30] MEDS ORDERED: MIDAZOLAM 2 MG/2 ML VIAL IV ONE (09:17)
[2018-08-30] MEDS ORDERED: fentaNYL (PF) 50 MCG/ML 2 ML AMP IV ONE (09:17)
[2018-08-30] MEDS ORDERED: MIDAZOLAM 2 MG/2 ML VIAL ONE (10:03)
[2018-08-30] MEDS ORDERED: PROPOFOL 10 MG/ML 20 ML VIAL IV ONE (10:03)
[2018-08-30] MEDS ORDERED: ROPIVACAINE 5 MG/ML 30 ML VIAL ONE (10:03)
[2018-08-30] MEDS ORDERED: LIDOCAINE 1% INJ 10MG/ML (20 ML MDV) ONE (10:03)
[2018-08-30] MEDS ORDERED: fentaNYL (PF) 50 MCG/ML 2 ML AMP ONE (10:03)
[2018-08-30] MEDS ORDERED: LIDOCAINE 2%-EPI 1:100,000 20 ML VIAL ONE (10:03)
[2018-08-30] MEDS ORDERED: IV FLUID CONTINUATION 1,000 ML IV ONE (10:40)
[2018-08-30] MEDS: HYDROmorphone 0.5 MG/0.5 ML SYRINGE IVP PRN ×2 (11:17→11:22)
--- NOTE | 2018-08-30 11:20 | P.OP ---
Date of Procedure: 08/30/18 Preoperative Diagnosis: Right elbow olecranon fracture Postoperative Diagnosis: Same Procedure(s) Performed: Revision open reduction and internal fixation right elbow olecranon fracture Anesthesia: GETA, regional (Interscalene block) Surgeon: Frank Concepcion Estimated Blood Loss (ml): 10 Pathology: none sent Condition: stable Disposition: PACU Indications for Procedure: 63-year-old patient seen with a right elbow olecranon fracture with history of previous open reduction and internal fixation. It appeared that the cerclage wire and K wires had backed out allowing some gapping at the intra-articular portion of the fracture. I recommended revision ORIF. Patient was agreeable and consent was obtained. Operative Findings: see description of procedure Description of Procedure: The patient was taken to the operative suite. The patient had received interscalene block for postoperative pain management. The patient underwent a general anesthetic by the department of anesthesia. A well-padded tourniquet placed proximal right upper extremity. The right upper extremity was prepped and draped in the normal sterile orthopedic fashion. The extremity was elevated and tourniquet insufflated to 250. An incision was made over the previous cicatrix proximally dissection was taken down to the fixation. It did appear that the K wires had backed out and the cerclage were loosened up. I pulled back the K wires and rotated the proximal end bearing K wires back into soft tissue making sure well fixated and stable. I now noted that the cerclage where was intact. I would went ahead and tensioned it additionally causing some compression to occur. Some residual additional wire was clipped proximally. There was buried in soft tissue. The elbow was taken through range of motion good stability was noted. The wound was irrigated copiously with saline solution. Subcu soft tissues were approximated 2-0 Vicryl. This goes approximated with multiple 3-0 nylon sutures. Sterile dressings were applied. The tourniquet was released with immediate capillary refill the entire extremity noted. A long-arm posterior spinal was now applied with the elbow in 90 of flexion and neutral rotation. The patient was awakened and transferred to recovery stable condition.
[2018-08-30 11:22] VITALS: RESP 16
[2018-08-30 11:46] VITALS: BP 133/85; PULSE 61
[2018-08-30] MEDS ORDERED: HYDROcodone/APAP 7.5-325MG 1 EACH TAB PO ONE (12:15)
--- NOTE | 2018-08-30 12:17 | P.ONQ ---
Anesthesiology Proc Note - PNB - Peripheral Nerve Block Performed Right Supraclavicular Single Time Out Performed: Yes Indication: Acute Post-Operative Pain, Dx/Pain Location (Right elbow pain), Requested by physician Sedation Type: Sedate with meaningful contact maintained Preparation: Sterile Prep Position: Supine Catheter: None Needle Types: On-Q Needle Size: 50mm (2") Needle Gauge: 21 Technique: Ultrasound Injectate: 0.5% Ropivacaine (see comment for volume) Blood Aspirated: No Pain Paresthesia on Injection Noted: No Resistance on Injection: Normal Events: Uneventful and Well Tolerated
== END 2018-08-30 12:53 | disposition home or self-care (01) ==
LOC: OR 08:16
PROVIDERS: ATTEND Orthopaedic Surgery
DX: T84.122A Displacement of internal fixation device of bone of right forearm, initial encounter (principal); S52.031A Displaced fracture of olecranon process with intraarticular extension of right ulna, initial encounter for closed fracture; X58.XXXA Exposure to other specified factors, initial encounter; E78.5 Hyperlipidemia, unspecified; J45.909 Unspecified asthma, uncomplicated; R13.10 Dysphagia, unspecified; Z79.899 Other long term (current) drug therapy; Z88.5 Allergy status to narcotic agent; Z88.0 Allergy status to penicillin
CPT/HCPCS: 64415; 24685; J2250; J2405; J2001; J3010; J2795; J2704; J1170

== ENCOUNTER 2018-11-09 11:19 | Day surgery (SDC) | payer MEDICARE ==
[2018-11-06 13:34] VITALS: BMI 20.9
--- NOTE | 2018-11-08 17:31 | HP ---
HISTORY AND PHYSICAL DATE OF SURGERY: 11/09/2018 Isa Zambrano is a 63-year-old patient seen with irritating internal fixation, right elbow. We discussed treatment. She elected to proceed with removal of irritating fixation. Consent was obtained. PAST MEDICAL HISTORY: Asthma. PAST SURGICAL HISTORY: 1. Knee arthroscopy. 2. Shoulder arthroscopy. 3. Right ankle surgery. 4. ORIF right elbow, olecranon fracture. DAILY MEDICATIONS: 1. Ventolin inhaler. 2. Zantac. 3. Zyrtec. ALLERGIES: PENICILLIN, DEMEROL. SOCIAL HISTORY: She denies current tobacco use. PHYSICAL EVALUATION OF RIGHT ELBOW: Her incision is healed. There is prominence of the hardware with tenderness in the area. Range of motion is good. Ligaments are stable. Distal neurovascular exam is intact. RADIOGRAPHS: Radiographs of the right elbow revealed a healed olecranon fracture with stable- appearing hardware. IMPRESSION: Irritating internal fixation, right elbow. PLAN: Removal of irritating internal fixation, right elbow. MMODL / IJN: [id number] /
[~2018-11-09 11:19] MED LIST: DEXAMETHASONE SOD PHOSPHATE 10 MG/ML 1 ML VIAL IV ONE; LACTATED RINGERS 1,000 ML IV SCH; LIDOCAINE 1% 20 ML VIAL (10MG/ML) FOR IV START INTRADERMA PRN; MIDAZOLAM 2 MG/2 ML VIAL IV PRN; ONDANSETRON 4 MG/2 ML VIAL IVP ONE; SCOPOLAMINE 1.5MG/72HR PATCH TRANSDERM ONE
[2018-11-09] MEDS ORDERED: MIDAZOLAM (PF) 2 MG/2 ML VIAL IVP ONE (12:39)
[2018-11-09] MEDS ORDERED: fentaNYL (PF) 50 MCG/ML 2 ML AMP ONE (12:59)
[2018-11-09] MEDS ORDERED: PROPOFOL 10 MG/ML 20 ML VIAL IV ONE (12:59)
[2018-11-09] MEDS ORDERED: MIDAZOLAM 2 MG/2 ML VIAL ONE (12:59)
[2018-11-09] MEDS ORDERED: BUPIVACAINE (PF) 0.5% 30 ML VIAL SQ ONE ×3 (13:33→13:41)
--- NOTE | 2018-11-09 13:57 | P.OP ---
Date of Procedure: 11/09/18 Preoperative Diagnosis: Irritating internal fixation right elbow Postoperative Diagnosis: Same Procedure(s) Performed: Removal irritating hardware right elbow Anesthesia: KWABENA, local Surgeon: Frank Concepcion Lumber Tallier #1: Maurice Mayer Estimated Blood Loss (ml): 5 Pathology: none sent Condition: stable Disposition: PACU Indications for Procedure: 63-year-old patient seen with irritating internal fixation right elbow. We discussed hardware removal. She was agreeable. Consent was obtained. Operative Findings: See description of procedure Description of Procedure: The patient was taken to the operative suite. Patient underwent a general anesthetic by the department of anesthesia. The patient received preoperative IV antibiotics. The right upper extremity was prepped and draped in the normal sterile orthopedic fashion. The extremity was elevated and the tourniquet was insufflated to 250. I made an incision over the previous cicatrix. I dissected down to the hardware. The pins were removed without difficulty. The cerclage was clipped. While neck branch all the arm I pull the cerclage wire out in 1 piece. The fracture. Well-healed. The wound was irrigated. There was good hemostasis. The subcu soft tissues were repaired with 2-0 Vicryl. The skin was repaired with multiple interrupted nylon sutures. The subcutaneous soft tissues around the incision infiltrated with half percent plain Marcaine. The tourniquet was released with immediate capillary refill noted. Sterile dressings followed by loose web bone Parminder bandage were applied. The patient was awakened and transferred to recovery stable condition. Chester FORD assisted with the procedure.
[2018-11-09 14:01] VITALS: TEMP 97.2
[2018-11-09] MEDS: HYDROmorphone 0.5 MG/0.5 ML SYRINGE IVP PRN ×2 (14:05→14:11)
[2018-11-09 14:21] VITALS: RESP 18
[2018-11-09 14:58] VITALS: BP 123/78; PULSE 78
== END 2018-11-09 15:24 | disposition home or self-care (01) ==
LOC: OR 11:19
PROVIDERS: ATTEND Orthopaedic Surgery
DX: T84.84XA Pain due to internal orthopedic prosthetic devices, implants and grafts, initial encounter (principal); J45.990 Exercise induced bronchospasm; Z79.899 Other long term (current) drug therapy; Z88.5 Allergy status to narcotic agent; Z88.0 Allergy status to penicillin
CPT/HCPCS: 20680; J2250 ×2; J1100; J2405; J0690; J3010; J2704; J1170

== ENCOUNTER → 2020-12-03 | Outpatient (CLI) | payer MEDICARE ==
[2020-12-03 14:31] LABS: African American GFR (CKD) >90 (>60 ml/min/1.73 sqM); Blood Urea Nitrogen 16 mg/dL (7-17); Non-African American GFR(CKD) >90 (>60 ml/min/1.73 sqM)
--- NOTE | 2020-12-03 16:00 | CT ---
EXAMINATION TYPE: CT abdomen pelvis w con DATE OF EXAM: 12/03/2020 HISTORY: Lower Abdominal pain. CT DLP: 333.6mGycm Automated Exposure Control for Dose Reduction was Utilized. CONTRAST: CT scan of the abdomen and pelvis is performed with oral and with IV Contrast, patient injected with 100 mL of Isovue 300. COMPARISON: None. FINDINGS: LUNG BASES: No significant abnormality is appreciated. LIVER/GB: Prominent left hepatic lobe. Overall liver size upper limits of normal PANCREAS: No significant abnormality is seen. SPLEEN: No significant abnormality is seen. ADRENALS: No significant abnormality is seen. KIDNEYS: No significant abnormality is seen. BOWEL: The oral contrast does not reach level of the terminal ileum. This along with patient having l ittle intra-abdominal fat makes evaluation suboptimal. There is no suspicious small or large bowel di latation. There are small bowel feces sign. Findings consistent with delayed passage of ingested mate rial to colonic level. There are scattered colonic diverticula most prominent in the sigmoid colon. T here is suggestion of mild fluid and fat stranding in the left pelvis axial image 57 for reference. A cute diverticulitis at this level cannot be excluded. UTERUS/ADNEXA: Uterus difficult to visualize adjacent nonopacified bowel loops. No concerning adnexal masses clearly seen. A few scattered inferior pelvic phleboliths. LYMPH NODES: No greater than 1cm abdominal or pelvic lymph nodes are appreciated. OSSEOUS STRUCTURES: Underlying scoliosis. Moderate to advanced multilevel spurring and disc space austin rowing in the thoracolumbar spine. Moderate disc space narrowing lumbosacral junction with vacuum dis c phenomenon. Sclerosis suspicious for subacute or healed fracture involving the left L3 vertebra. OTHER: No significant additional abnormality is seen. IMPRESSION: Suboptimal study. Colonic diverticula greatest in the sigmoid colon with suggestion of mi ld uncomplicated acute diverticulitis in the mid sigmoid colon left pelvis. Correlate clinically. A Yellow level critical message alert has been initiated for Preeti Butler MD via the [employer] Critical Results System on 12/03/2020 3:57 PM. This message alert has been sent to Preeti zuniga MD via the preferences provided by the clinician for the receipt of Radiology Critical Findings. Message ID [id number].
== END | disposition home or self-care (01) ==
LOC: RADCTMAIN 13:25
PROVIDERS: ATTEND Family Medicine
DX: K57.30 Diverticulosis of large intestine without perforation or abscess without bleeding (principal)
CPT/HCPCS: 82565; 84520; 74177; 36415; Q9967

== ENCOUNTER → 2023-09-09 | Outpatient (CLI) | payer MEDICARE ==
--- NOTE | 2023-09-09 21:50 | US ---
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 Left Kidney: no obstructive uropathy or renal calculus. Bladder: wnl Bilateral Jets seen: yes There is no evidence for hydronephrosis at this point in time. No nephrolithiasis is seen. No peggy s are identified. The urinary bladder is anechoic. Bilateral ureteral jets are seen. IMPRESSION: No evidence for obstructive uropathy.
== END | disposition home or self-care (01) ==
LOC: RADUSWWP 13:28
PROVIDERS: ATTEND Family Medicine
DX: N39.46 Mixed incontinence (principal); N39.0 Urinary tract infection, site not specified; R35.0 Frequency of micturition
CPT/HCPCS: 76770

== ENCOUNTER → 2023-12-27 | Outpatient (CLI) | payer MEDICARE ==
--- NOTE | 2024-01-01 16:35 | BD ---
EXAMINATION TYPE: Axial Bone Density DATE OF EXAM: 12/27/2023 CLINICAL HISTORY: 68 years old Female. ICD-10 CODE: Z78.0 Asymptomatic menopausal state Height: 63.2 Weight: 115 FRAX RISK QUESTIONS: Glucocorticoids (More than 3mos): ventolin and asthma treatments (Ex: prednisone, prednisolone, methylprednisolone, dexamethasone, and hydrocortisone). History of Fracture in Adulthood: yes, many Secondary Osteoporosis: yes 3. Menopause before 45: yes, at 42-43 RISK FACTORS HISTORY OF: hx of L4 and L5 fx spine hx of left tibia, right wrist, right ankle, left foot, right elbow, various fingers and toes, facial bones, orbital History of Wrist Fracture: right wrist as an adult MEDICATIONS: vit d and calcium, EXAM MEASUREMENTS: Bone mineral densitometry was performed using the [employer] System. hx of L4 and L5 fx in lower spine...spine not scanned. Bone mineral density about the R hip (g/cm2): 0.723 Bone mineral density about the L hip (g/cm2): 0.715 T Score values are as follows: -----R Neck: -2.4 -----L Neck: -2.3 -----R Total: -2.3 -----L Total: -2.3 Z Score values are as follows: -----R Neck: -0.5 -----L Neck: -0.3 -----R Total: -0.5 -----L Total: -0.6 Bone mineral density is her first bone density at [facility]. Bone mineral density about the L Wrist (g/cm2): 0.394 T Score values are as follows: -----Dist. R+U: -4.1 -----Prox. R+U: -2.4 -----Radius total: -4.6 Z Score values are as follows: -----Dist. R+U: -2.2 -----Prox. R+U: -0.6 -----Radius total: -2.8 Bone mineral density is her first dexa at [facility]. FRAX%s: The graph provided illustrates a 29.8% chance for a major osteoporotic fx and a 8.9% chance f or the hips probability for fx in 10 years time. IMPRESSION: Osteoporosis (T Score less than -2.5). There is increased fracture risk and therapy is usually indicated based on age. Re-Screen 1-2 years. NOTE: T-SCORE=SD OF THE YOUNG ADULT MEAN.
--- NOTE | 2024-01-05 07:05 | MM ---
Reason for Exam: Screening (asymptomatic). Last mammogram was performed 12 year(s) and 1 month(s) ago. Patient History: Menarche at age 12. Patient has no children. Postmenopausal. 11/01/1994, Excisional Biopsy on the Left side. Risk Values: Beena 5 year model risk: 2.3%. NCI Lifetime model risk: 6.9%. Prior Study Comparison: 07/13/2007 Bilateral Screening Mammogram, Unknown. 12/17/2011 Bilateral Screening Mammogram, Unknown. Tissue Density: The breasts are extremely dense, which lowers the sensitivity of mammography. Findings: Analyzed By CAD. The pattern is symmetrical. No suspicious groups of microcalcifications, spiculated or lobular masses, architectural distortion or other secondary signs of malignancy are mammographically apparent. Overall Assessment: Negative, BI-RAD 1 Management: Screening Mammogram of both breasts in 1 year. A negative mammogram report should not preclude additional follow up of suspicious palpable abnormalities. Patient should continue monthly self breast exam. A clinical breast exam by your physician is recommended on an annual basis and results should be correlated with mammographic findings. Note on Beena scores and lifetime risk: 1. A Beena score greater than 3% is considered moderate risk. If this is the case, consider specialist referral to assess eligibility for a risk reducing agent. 2. If overall lifetime risk for the development of breast cancer is 20% or higher, the patient may qualify for future screening with alternating mammogram and breast MRI. Electronically signed and approved by: Godwin Alejo D.O. Radiologis
== END | disposition home or self-care (01) ==
LOC: RADMAMWWP 12:10
PROVIDERS: ATTEND Family Medicine
DX: Z12.31 Encounter for screening mammogram for malignant neoplasm of breast (principal); R92.343 Mammographic extreme density, bilateral breasts; M81.0 Age-related osteoporosis without current pathological fracture; M85.89 Other specified disorders of bone density and structure, multiple sites; Z78.0 Asymptomatic menopausal state
CPT/HCPCS: 77063; 77067; 77080

== ENCOUNTER → 2024-01-24 | Outpatient (CLI) | payer MEDICARE | END | disposition home or self-care (01) | LOC: LABPRL 11:14 | PROVIDERS: ATTEND Family Medicine | DX: M81.8 Other osteoporosis without current pathological fracture (principal); E55.9 Vitamin D deficiency, unspecified | CPT/HCPCS: 80053; 82306 ==

== ENCOUNTER → 2024-03-22 | Outpatient (CLI) | payer MEDICARE ==
[2024-03-22 14:03] VITALS: BP 172/95; PULSE 87; RESP 16; TEMP 98.4
[2024-03-22] MEDS: SODIUM CHLORIDE 0.9% 500 ML 500 ML in EMPTY BAG 1 BAG IV PRN (14:12)
[2024-03-22] MEDS: ZOLEDRONIC ACID 5 MG in SODIUM CHLORIDE 0.9% 100 ML IV NR (14:31)
== END ==
LOC: PROCWHC3 13:41
PROVIDERS: ATTEND Nurse Practitioner Family
DX: M81.8 Other osteoporosis without current pathological fracture (principal); Z88.0 Allergy status to penicillin; Z88.5 Allergy status to narcotic agent
CPT/HCPCS: 96365; J3489